=== PATIENT | female | born 1960 ===

== ENCOUNTER 2023-12-23 05:24 | Day surgery (SDC) | payer OTHER ==
[2023-12-22 10:40] VITALS: BMI 34.9
[2023-12-23 11:36] VITALS: TEMP 98
[2023-12-23 12:04] VITALS: BP 110/82; PULSE 60; RESP 15
== END 2023-12-23 12:04 | disposition home or self-care (01) ==
LOC: JASU-ENDO 05:24
PROVIDERS: ATTEND Student in an Organized Health Care Education/Training Program
PROC: 0DBL8ZX Excision of Transverse Colon, Via Natural or Artificial Opening Endoscopic, Diagnostic (ICD-10-PCS; principal; 2023-12-23 10:30)
DX: Z12.11 Encounter for screening for malignant neoplasm of colon (principal); K63.5 Polyp of colon; K64.8 Other hemorrhoids
CPT/HCPCS: 88305-TC